=== PATIENT | female | born 1980 | race Caucasian/White ===

== ENCOUNTER 2020-01-30 13:43 | Inpatient (IN) | payer MEDICAID ==
[~2020-01-30] VITALS: Ht 165.1 cm; Wt 81.0 kg
[2020-01-30] MEDS ORDERED: ondansetron/PF 4mg/2ml inj IV ONE ×2 (14:05→14:50)
[2020-01-30] MEDS ORDERED: HYDROmorphone 1 mg/ml syringe IV ONE (14:05)
--- NOTE | 2020-01-30 14:07 | NUR ---
Dr. Fong notifed of pt's arrival to ER, pain level. Orders given.
[2020-01-30] MEDS ORDERED: piperacillin/tazo 3.375gm/50ml 50 ML IV ONE (14:50)
[2020-01-30] MEDS ORDERED: normal saline 1000ML IV soln IVB ONE (14:50)
[2020-01-30] MEDS ORDERED: ketamine 10mg/ml 20ml inj IV ONE (15:15)
[2020-01-30 15:25] LABS: BASOPHILS % (AUTO) 0.5 % (0-1); EOSINOPHILS # (AUTO) 0.1 X10'3 (0-0.9); EOSINOPHILS % (AUTO) 1.5 % (0-6); HEMATOCRIT 41.5 % (35.0-45.0); HEMOGLOBIN 14.3 g/dl (12.0-16.0); LYMPHOCYTES # (AUTO) 1.5 X10'3 (1.1-4.8); LYMPHOCYTES % (AUTO) 16.5 % (21-51); MEAN CORPUSCULAR HEMOGLOBIN 32.4 PG (27.0-31.0); MEAN CORPUSCULAR HGB CONC 34.5 g/dL (33.0-36.5); MEAN CORPUSCULAR VOLUME 93.7 FL (78-98); MEAN PLATELET VOLUME 8.4 FL (7.4-10.4); MONOCYTES # (AUTO) 0.6 X10'3 (0-0.9); MONOCYTES % (AUTO) 6.5 % (2-12); NEUTROPHILS # (AUTO) 6.9 X10'3 (1.8-7.7); PLATELET COUNT 278 X10'3 (140-440); RED BLOOD COUNT 4.43 X10'6 (4.20-5.60); RED CELL DISTRIBUTION WIDTH 12.4 % (11.5-14.5); WHITE BLOOD COUNT 9.2 X10'3 (4.5-11.0)
[2020-01-30] MEDS ORDERED: morphine 4 MG/ML inj SYRINge IV PRN (15:30)
[2020-01-30] MEDS ORDERED: mag hydrox/Alum hydrox/simeth 30ml oral suspension PO PRN (15:30)
[2020-01-30] MEDS ORDERED: LORazepam 2 mg/ml vial IV ONE (15:30)
[2020-01-30] MEDS ORDERED: magnesium 2GM in 50ml NS 50 ML IV PRN (15:30)
[2020-01-30] MEDS ORDERED: magnesium 4gm in 100ml NS 100 ML IV PRN (15:30)
[2020-01-30] MEDS ORDERED: dronabinol 2.5mg capsule PO PRN (15:30)
[2020-01-30] MEDS ORDERED: acetaminophen 325mg tablet PO PRN (15:30)
[2020-01-30] MEDS ORDERED: potassium Cl 20 mEq SR tablet PO PRN (15:30)
[2020-01-30] MEDS ORDERED: magnesium hydroxide 30ml (MOM) UD suspension PO PRN (15:30)
[2020-01-30] MEDS ORDERED: potassium CL 10mEq/100ml bag 100 ML IV PRN ×2 (15:30)
[2020-01-30] MEDS ORDERED: ketamine 50 mg/ml 10ml vial IV ONE (15:30)
[2020-01-30] MEDS ORDERED: ondansetron/PF 4mg/2ml inj IV PRN (15:30)
[2020-01-30 15:41] LABS: ALANINE AMINOTRANSFERASE 474 U/L (12-78); ALBUMIN 3.6 G/DL (3.4-5.0); ALKALINE PHOSPHATASE 351 IU/L (46-116); ANION GAP 7 (8-16); ASPARTATE AMINO TRANSFERASE 355 U/L (10-37); BILIRUBIN,TOTAL 4.7 MG/DL (0.1-1.0); BLOOD UREA NITROGEN 10 MG/DL (7-18); BUN/CREATININE RATIO 15.2 (6.6-38.0); CALCIUM 8.9 MG/DL (8.5-10.1); CHLORIDE 104 MMOL/L (99-107); CREATININE 0.66 MG/DL (0.40-0.90); GLUCOSE 92 MG/DL (70-104); LIPASE 985 U/L (73-393); POTASSIUM 3.8 MMOL/L (3.5-5.1); SODIUM 139 MMOL/L (135-145); TOTAL CARBON DIOXIDE 28.2 MMOL/L (24-32); eGFR > 90 ML/MIN
[2020-01-30 15:43] LABS: TOTAL PROTEIN 7.3 G/DL (6.4-8.2)
--- NOTE | 2020-01-30 15:56 | NUR ---
PT RECEIVED 30 MG OF KETAMINE. ADVERSE REACTION PT PANICK. STATES WHATS GOING ON. VSS 74, 15, 132/98. 02 SAT 98%. INFORMED DR. BARRETT. KETAMINE STOPPED, AND DISCONTINUED.
[2020-01-30] MEDS ORDERED: NO HOME MEDS (15:59)
[2020-01-30] MEDS: piperacillin/tazo 4.5gm/100ml 100 ML IV SCH (16:00)
[2020-01-30] MEDS: normal saline 1000ml 1,000 ML IV SCH (16:35)
--- NOTE | 2020-01-30 17:51 | NUR ---
Pt sleeping, arousable to voice. Awaiting inpatient bed. Call light at bedside
--- NOTE | 2020-01-30 19:29 | NUR ---
pt woke screaming 10/10 pain
[2020-01-30] MEDS: morphine 2 MG/ML inj. syringe IV PRN (19:30)
--- NOTE | 2020-01-30 19:45 | NUR ---
Called for report on patient ,who is to f/u shortly.
[2020-01-30 20:00] VITALS: BP 141/88
[2020-01-30] MEDS: K and/or MAG REPLACEMENT MC SCH (20:00)
--- NOTE | 2020-01-30 20:00 | NUR ---
Patient arrived to floor via gurney. A&O and yelling that she is is pain. Patient transferred herself to bed and VS initiated.
[2020-01-31] VITALS (15 sets, daily range): BP systolic 105–128; BP diastolic 68–87
[2020-01-31] MEDS: piperacillin/tazo 4.5gm/100ml 100 ML IV SCH ×3 (00:01→17:25)
[2020-01-31] MEDS ORDERED: HYDROmorphone 1 mg/ml syringe IV PRN (03:30)
[2020-01-31] MEDS: normal saline 1000ml 1,000 ML IV SCH ×3 (03:46→21:30)
[2020-01-31] MEDS: morphine 2 MG/ML inj. syringe IV PRN ×3 (03:50→15:15)
[2020-01-31 05:32] LABS: BASOPHILS % (AUTO) 0.3 % (0-1); EOSINOPHILS # (AUTO) 0.2 X10'3 (0-0.9); EOSINOPHILS % (AUTO) 2.6 % (0-6); HEMOGLOBIN 12.9 g/dl (12.0-16.0); LYMPHOCYTES # (AUTO) 1.2 X10'3 (1.1-4.8); LYMPHOCYTES % (AUTO) 19.2 % (21-51); MEAN CORPUSCULAR HEMOGLOBIN 33.1 PG (27.0-31.0); MEAN CORPUSCULAR HGB CONC 34.8 g/dL (33.0-36.5); MEAN CORPUSCULAR VOLUME 95.3 FL (78-98); MEAN PLATELET VOLUME 8.5 FL (7.4-10.4); MONOCYTES # (AUTO) 0.4 X10'3 (0-0.9); NEUTROPHILS # (AUTO) 4.6 X10'3 (1.8-7.7); NEUTROPHILS % (AUTO) 71.9 % (42-75); PLATELET COUNT 236 X10'3 (140-440); RED BLOOD COUNT 3.89 X10'6 (4.20-5.60); RED CELL DISTRIBUTION WIDTH 12.5 % (11.5-14.5); WHITE BLOOD COUNT 6.4 X10'3 (4.5-11.0)
[2020-01-31 05:35] LABS: ALANINE AMINOTRANSFERASE 341 U/L (12-78); ALBUMIN/GLOBULIN RATIO 0.9 (1.1-1.5); ALKALINE PHOSPHATASE 336 IU/L (46-116); ANION GAP 7 (8-16); ASPARTATE AMINO TRANSFERASE 158 U/L (10-37); BILIRUBIN,TOTAL 3.5 MG/DL (0.1-1.0); BLOOD UREA NITROGEN 9 MG/DL (7-18); BUN/CREATININE RATIO 13.6 (6.6-38.0); CALCIUM 8.2 MG/DL (8.5-10.1); CHLORIDE 105 MMOL/L (99-107); CREATININE 0.66 MG/DL (0.40-0.90); GLUCOSE 84 MG/DL (70-104); LIPASE 568 U/L (73-393); MAGNESIUM 1.7 MG/DL (1.5-2.4); POTASSIUM 3.5 MMOL/L (3.5-5.1); SODIUM 138 MMOL/L (135-145); TOTAL CARBON DIOXIDE 25.6 MMOL/L (24-32); TOTAL PROTEIN 6.3 G/DL (6.4-8.2); eGFR > 90 ML/MIN
--- NOTE | 2020-01-31 06:47 | NUR ---
Problems reprioritized. Patient report given, questions answered & plan of care reviewed with Hermila SEARS.
[2020-01-31] MEDS: K and/or MAG REPLACEMENT MC SCH ×2 (08:00→20:00)
--- NOTE | 2020-01-31 08:18 | NUR ---
Patient in room [facility]. I have received report from ZACHARY SEARS and had the opportunity to ask questions and assume patient care.
[2020-01-31] MEDS ORDERED: MIDAZolam 5mg/5ml vial ONE ×2 (15:13→15:14)
[2020-01-31] MEDS ORDERED: fentaNYL/PF 50MCG/1 ML 2ML syringe ONE (15:13)
[2020-01-31] MEDS ORDERED: diphenhydrAMINE 50 mg/ml inj ONE ×2 (15:14→15:52)
[2020-01-31] MEDS ORDERED: LIDOcaine Viscous 15ml cup ONE (15:14)
[2020-01-31] MEDS ORDERED: iohexol 300 MG/1 ML 50ml polymer ONE (15:14)
[2020-01-31] MEDS ORDERED: glucagon, human recombinant 1mg kit ONE (15:14)
--- NOTE | 2020-01-31 17:57 | NUR ---
Problems reprioritized. Patient report given, questions answered & plan of care reviewed with TOBIAS SEARS.
[2020-01-31] MEDS: lactobacillus rhamnosus 10,000 MMU CELLS/CAPSULE PO SCH (20:00)
[2020-02-01] VITALS: BP 108/68
[2020-02-01] MEDS: piperacillin/tazo 4.5gm/100ml 100 ML IV SCH ×4 (00:34→23:33)
[2020-02-01] MEDS: morphine 2 MG/ML inj. syringe IV PRN ×2 (04:04→10:48)
[2020-02-01 06:04] LABS: BASOPHILS % (AUTO) 0.7 % (0-1); EOSINOPHILS # (AUTO) 0.1 X10'3 (0-0.9); EOSINOPHILS % (AUTO) 1.5 % (0-6); HEMATOCRIT 36.3 % (35.0-45.0); HEMOGLOBIN 12.6 g/dl (12.0-16.0); LYMPHOCYTES # (AUTO) 1.5 X10'3 (1.1-4.8); LYMPHOCYTES % (AUTO) 20.4 % (21-51); MEAN CORPUSCULAR HEMOGLOBIN 32.9 PG (27.0-31.0); MEAN CORPUSCULAR HGB CONC 34.6 g/dL (33.0-36.5); MEAN CORPUSCULAR VOLUME 94.9 FL (78-98); MEAN PLATELET VOLUME 8.5 FL (7.4-10.4); MONOCYTES # (AUTO) 0.4 X10'3 (0-0.9); MONOCYTES % (AUTO) 5.9 % (2-12); NEUTROPHILS # (AUTO) 5.2 X10'3 (1.8-7.7); NEUTROPHILS % (AUTO) 71.5 % (42-75); PLATELET COUNT 234 X10'3 (140-440); RED BLOOD COUNT 3.82 X10'6 (4.20-5.60); RED CELL DISTRIBUTION WIDTH 12.1 % (11.5-14.5); WHITE BLOOD COUNT 7.3 X10'3 (4.5-11.0)
[2020-02-01 06:29] LABS: ALANINE AMINOTRANSFERASE 218 U/L (12-78); ALBUMIN 2.8 G/DL (3.4-5.0); ALBUMIN/GLOBULIN RATIO 0.8 (1.1-1.5); ALKALINE PHOSPHATASE 291 IU/L (46-116); ANION GAP 10 (8-16); ASPARTATE AMINO TRANSFERASE 47 U/L (10-37); BILIRUBIN,TOTAL 1.1 MG/DL (0.1-1.0); BLOOD UREA NITROGEN 8 MG/DL (7-18); BUN/CREATININE RATIO 13.3 (6.6-38.0); CALCIUM 8.4 MG/DL (8.5-10.1); CHLORIDE 107 MMOL/L (99-107); GLUCOSE 74 MG/DL (70-104); LIPASE 140 U/L (73-393); MAGNESIUM 1.8 MG/DL (1.5-2.4); POTASSIUM 3.7 MMOL/L (3.5-5.1); SODIUM 141 MMOL/L (135-145); TOTAL CARBON DIOXIDE 23.9 MMOL/L (24-32); TOTAL PROTEIN 6.3 G/DL (6.4-8.2); eGFR > 90 ML/MIN
--- NOTE | 2020-02-01 06:42 | NUR ---
Patient in room [facility]. I have received report from ORION Cabrales and had the opportunity to ask questions and assume patient care.
[2020-02-01] MEDS: normal saline 1000ml 1,000 ML IV SCH ×2 (07:30→17:49)
[2020-02-01 08:00] VITALS: BP 107/67
[2020-02-01] MEDS: K and/or MAG REPLACEMENT MC SCH ×2 (08:00→20:00)
[2020-02-01] MEDS: lactobacillus rhamnosus 10,000 MMU CELLS/CAPSULE PO SCH ×2 (08:16→20:00)
[2020-02-01 11:00] VITALS: BP 118/69
[2020-02-01 18:00] VITALS: BP_SYST 101; BP_SYST 132; BP_DIAS 63; BP_DIAS 65
--- NOTE | 2020-02-01 18:31 | NUR ---
Problems reprioritized. Patient report given, questions answered & plan of care reviewed with ORION Cabrales.
[2020-02-02] VITALS: BP 110/63
[2020-02-02] MEDS: morphine 2 MG/ML inj. syringe IV PRN (00:14)
[2020-02-02] MEDS: normal saline 1000ml 1,000 ML IV SCH ×2 (03:37→13:30)
[2020-02-02 05:50] LABS: BASOPHILS % (AUTO) 0.5 % (0-1); EOSINOPHILS # (AUTO) 0.1 X10'3 (0-0.9); EOSINOPHILS % (AUTO) 1.7 % (0-6); HEMATOCRIT 35.9 % (35.0-45.0); HEMOGLOBIN 12.2 g/dl (12.0-16.0); LYMPHOCYTES # (AUTO) 1.9 X10'3 (1.1-4.8); LYMPHOCYTES % (AUTO) 24.5 % (21-51); MEAN CORPUSCULAR HEMOGLOBIN 32.9 PG (27.0-31.0); MEAN CORPUSCULAR HGB CONC 34.1 g/dL (33.0-36.5); MEAN CORPUSCULAR VOLUME 96.4 FL (78-98); MEAN PLATELET VOLUME 8.5 FL (7.4-10.4); MONOCYTES # (AUTO) 0.5 X10'3 (0-0.9); MONOCYTES % (AUTO) 6.2 % (2-12); NEUTROPHILS # (AUTO) 5.2 X10'3 (1.8-7.7); NEUTROPHILS % (AUTO) 67.1 % (42-75); PLATELET COUNT 257 X10'3 (140-440); RED BLOOD COUNT 3.72 X10'6 (4.20-5.60); RED CELL DISTRIBUTION WIDTH 12.3 % (11.5-14.5); WHITE BLOOD COUNT 7.7 X10'3 (4.5-11.0)
[2020-02-02 06:09] LABS: ALANINE AMINOTRANSFERASE 141 U/L (12-78); ALBUMIN 2.6 G/DL (3.4-5.0); ALBUMIN/GLOBULIN RATIO 0.7 (1.1-1.5); ALKALINE PHOSPHATASE 234 IU/L (46-116); ANION GAP 8 (8-16); ASPARTATE AMINO TRANSFERASE 19 U/L (10-37); BILIRUBIN,TOTAL 0.6 MG/DL (0.1-1.0); BLOOD UREA NITROGEN 7 MG/DL (7-18); BUN/CREATININE RATIO 10.6 (6.6-38.0); CALCIUM 8.4 MG/DL (8.5-10.1); CHLORIDE 109 MMOL/L (99-107); CREATININE 0.66 MG/DL (0.40-0.90); GLUCOSE 88 MG/DL (70-104); LIPASE 153 U/L (73-393); MAGNESIUM 1.7 MG/DL (1.5-2.4); POTASSIUM 3.4 MMOL/L (3.5-5.1); SODIUM 143 MMOL/L (135-145); TOTAL CARBON DIOXIDE 26.1 MMOL/L (24-32); TOTAL PROTEIN 6.1 G/DL (6.4-8.2); eGFR > 90 ML/MIN
--- NOTE | 2020-02-02 06:27 | NUR ---
Patient in room [facility]. I have received report from ORION Cabrales and had the opportunity to ask questions and assume patient care.
[2020-02-02] MEDS: piperacillin/tazo 4.5gm/100ml 100 ML IV SCH (07:36)
[2020-02-02] MEDS: lactobacillus rhamnosus 10,000 MMU CELLS/CAPSULE PO SCH (07:41)
[2020-02-02 08:00] VITALS: BP 117/80
[2020-02-02] MEDS: K and/or MAG REPLACEMENT MC SCH (08:00)
[2020-02-02] MEDS: potassium Cl 20 mEq SR tablet PO PRN ×2 (09:38→14:51)
[2020-02-02] MEDS ORDERED: TRAM50TA2 PO ×2 (12:31→12:32)
--- NOTE | 2020-02-02 17:50 | NUR ---
Pt discharge in stable condition. Follow up, medication, and discharge instructions given to pt. IV removed. Pt was escorted to main lobby. left the hospital via private vehicle accompanied by friend.
== END 2020-02-02 16:30 | disposition home or self-care (01) ==
LOC: ER 13:44 → ED HOLD 15:30 → SUR 3N 20:01
PROVIDERS: ADMIT Family Medicine; ATTEND Family Medicine
PROC: BF131ZZ Fluoroscopy of Gallbladder and Bile Ducts using Low Osmolar Contrast (ICD-10-PCS; principal; 2020-01-31)
PROC: 0FC98ZZ Extirpation of Matter from Common Bile Duct, Via Natural or Artificial Opening Endoscopic (ICD-10-PCS; 2020-01-31)
DX: K80.50 Calculus of bile duct without cholangitis or cholecystitis without obstruction (principal); K85.90 Acute pancreatitis without necrosis or infection, unspecified; F17.210 Nicotine dependence, cigarettes, uncomplicated; F40.10 Social phobia, unspecified; F90.9 Attention-deficit hyperactivity disorder, unspecified type; F60.3 Borderline personality disorder; Z90.49 Acquired absence of other specified parts of digestive tract; Z80.1 Family history of malignant neoplasm of trachea, bronchus and lung
CPT/HCPCS: 36415; 43262; 43264; 80053; 83690; 83735; 85025; 86885; 86900; 86901; 87081; 96374; 96375; 99152; 99153; 99285; A4620; C1769; G0378; J1170; J1200; J1610; J2060; J2250; J2270; J2405; J2543; J3010; J7030; J7040; Q0167; Q9967